=== PATIENT | male | born 1980 | race African-American/Black ===

== ENCOUNTER 2022-04-03 12:04 | Outpatient (CLI) | payer OTHER | END 2022-04-03 12:05 | disposition home or self-care (01) | LOC: CSHCT 12:04 | PROVIDERS: ATTEND Internal Medicine Pulmonary Disease | DX: R06.00 Dyspnea, unspecified (principal); J98.4 Other disorders of lung; J84.9 Interstitial pulmonary disease, unspecified; J47.9 Bronchiectasis, uncomplicated; R59.0 Localized enlarged lymph nodes | CPT/HCPCS: 71250; 94010; 94726; 94729; 94760 ==